=== PATIENT | female | born 1995 | race African-American/Black ===

== ENCOUNTER → 2016-12-13 | Outpatient (CLI) | payer OTHER ==
[~2016-12-13] MED LIST: METR0.757 PV
== END | disposition home or self-care (01) ==
LOC: C.PAPS 08:02
PROVIDERS: ATTEND Physician Assistant
DX: Z01.419 Encounter for gynecological examination (general) (routine) without abnormal findings (principal)

== ENCOUNTER → 2016-12-13 | Outpatient (CLI) | payer OTHER ==
[2016-12-16 01:09] LABS: CHLAMYDIA TRACH RNA*** DETECTED (NOT DETECTED); GC (NEIS GONORRHOEAE)RNA** NOT DETECTED (NOT DETECTED)
== END | disposition home or self-care (01) ==
LOC: C.LAB1850 15:32
PROVIDERS: ATTEND Physician Assistant
DX: Z11.3 Encounter for screening for infections with a predominantly sexual mode of transmission (principal); N89.8 Other specified noninflammatory disorders of vagina

== ENCOUNTER 2017-01-23 15:19 | Emergency (ER) | payer OTHER ==
[~2017-01-23] VITALS: Ht 160 cm; Wt 66.5 kg
[2017-01-23 15:23] VITALS: TEMP 37; Ht 160 cm; Wt 66.5 kg
[2017-01-23] MEDS ORDERED: SODIUM CHLORIDE 0.9% 1000ML 1,000 ML IV STA (15:41)
--- NOTE | 2017-01-23 16:04 | EMERGENCY ROOM VISIT NOTE ---
History First contact with patient: 15:26 Chief Complaint: DIZZY Stated Complaint: FATIGUE, LIGHTHEADED History of Present Illness The patient is a 21 year old female who presents to the Emergency Room with complaints of persistent fatigue and shortness of breath over the last few years , which has become worse within the past few weeks. Since the time of onset, patient states that she has been having increased difficulty exerting herself, as she feels too fatigued and short of breath with any activity. As these symptoms have gotten worse within the last few weeks, she now feels too tired when she sits up to read or do school work. Her symptoms improve when laying down to rest. When the patient feels fatigued and short of breath, she states that she intermittently becomes dizzy and and light headed. These symptoms also seem to be related to activity, and resolve with rest. The patient denies having any chest pain or numbness/tingling during these episodes. She states that she does occasionally have a headache but she denies fevers or chills. Patient notes that she has recently been gaining weight. She has been eating regularly and moving her bowels/urinating regularly. She denies abdominal pain, nausea, vomiting or diarrhea. Patient also notes an itchy, red rash at the base of her right anterior neck. [place] 3 weeks prior, but she does not remember being bitten by any insects or ticks. No rash anywhere else about her body. The patient has a history of malaria and anemia n 2008. She did have a negative malaria test after treatment, but she never had a follow up regarding anemia. She is no longer taking iron supplements. Patient's LMP was 3 weeks prior, no significant or abnormal bleeding at that time, denies chance of . Review of Systems A complete 10 point review of systems was reviewed with the patient with pertinent positives and negatives as per history of present illness. All else were negative. Social History Smoking Status: Never Smoker Smokeless Tobacco Use: No Alcohol Use: occasionally Drug Use: none Marital Status: single Housing Status: lives with family Occupation Status: [employer] student Current/Historical Medications Scheduled Metronidazole Vaginal (Metronidazole Vaginal), 1 APPL PV HS Allergies Coded Allergies: No Known Allergies (Unverified , 01/23/17) Physical Exam Vital Signs Date Time Temp Pulse Resp B/P (MAP) Pulse Ox O2 Delivery O2 Flow Rate FiO2 01/23/17 19:50 84 20 115/45 99 Room Air 01/23/17 17:45 81 109/57 101 111/76 92 122/66 01/23/17 17:12 75 01/23/17 15:23 37.0 77 16 103/65 100 Room Air Physical Exam VITALS: Vitals are noted on the nurse's note and reviewed by myself. Vital signs stable. GENERAL: 21-year-old female, in no acute distress, nondiaphoretic, well- developed well-nourished. SKIN: There is a small, quarter-sized rash on patient's superior right chest. The rash is slightly erythematous, circular in shape, with a central clearing. The skin was without erythema, edema, or bruising. There is no tenting of the skin. Capillary reflex less than 2 seconds. HEAD: Normocephalic atraumatic. EARS: External auditory canals clear, tympanic membranes pearly velazquez without erythema or effusion bilaterally. EYES: Pupils equal round and reactive to light and accommodation. Conjunctivae without injection, sclerae without icterus. Extraocular movements intact. NOSE: Patent, turbinates without inflammation or discharge. No sinus tenderness. MOUTH: Mucous membranes moist. Tonsils are not enlarged. Pharynx without erythema or exudate. Uvula midline. Airway patent. Tongue does not deviate. NECK: Supple without nuchal rigidity. No lymphadenopathy. No thyromegaly. Cervical spine is nontender. No JVD. HEART: Regular rate and rhythm without murmurs gallops or rubs. LUNGS: Clear to auscultation bilaterally without wheezes, rales or rhonchi. No dullness to percussion. No retractions or accessory muscle use. ABDOMEN: Positive bowel sounds x 4. Normal tympanic percussion. Soft, nontender, without masses or organomegaly. Clay sign negative. No guarding or rebound tenderness. MUSCULOSKELETAL: No muscle atrophy, erythema, or edema noted. Full range of motion without joint tenderness in all extremities. No tenderness to palpation. Normal gait. Strength 5/5 throughout. NEURO: Patient was alert and oriented to person place and time. Normal sensation to light and sharp touch. Deep tendon reflexes 2+ throughout. No focal neurological deficits. Medical Decision & Procedures ER Provider Diagnostic Interpretation: EKG: EKG shows NSR with normal intervals, normal QRS complexes, no ST elevation or depression, and no arrhythmias. CXR, reviewed by myself, interpreted by radiologist: FINDINGS: The cardiac and mediastinal contours are normal. There is no evidence of focal pulmonary consolidation. There is no evidence of failure. No pleural effusions are visualized.[ IMPRESSION: No active disease in the chest. Labs: CBC showed extremely minimally low red blood cell count of 4.12. Hemoglobin and hematocrit were normal. There is no anemia, thrombocytopenia, leukocytosis noted on CBC. CMP was negative for electrolyte imbalance, abnormal glucose level, liver or kidney dysfunction. Serum ferritin was normal at 26.2. TIBC normal at 378. INR 1.0. No abnormalities related to coagulation. Lyme disease testing was negative. Monospot testing was negative. Laboratory Results 01/23/17 16:55 Red Blood Count 4.12, Mean Corpuscular Volume 90.8, Mean Corpuscular Hemoglobin 30.3, Mean Corpuscular Hemoglobin Concent 33.4, Mean Platelet Volume 10.6, Neutrophils (%) (Auto) 43.7, Lymphocytes (%) (Auto) 43.9, Monocytes (%) (Auto) 9.4, Eosinophils (%) (Auto) 2.3, Basophils (%) (Auto) 0.6, Neutrophils # (Auto) 3.06, Lymphocytes # (Auto) 3.07, Monocytes # (Auto) 0.66, Eosinophils # (Auto) 0.16, Basophils # (Auto) 0.04 01/23/17 16:55 Test 01/23/17 15:41 01/23/17 16:30 01/23/17 16:55 Urine Test NEG (NEG) Urine Color YELLOW Urine Appearance CLEAR (CLEAR) Urine pH 8.0 (4.5-7.5) Urine Specific [place] 1.022 (1.000-1.030) Urine Protein NEG (NEG) Urine Glucose (UA) NEG (NEG) Urine Ketones NEG (NEG) Urine Occult Blood NEG (NEG) Urine Nitrite NEG (NEG) Urine Bilirubin NEG (NEG) Urine Urobilinogen NEG (NEG) Urine Leukocyte Esterase MODERATE (NEG) Urine WBC (Auto) 5-10 /hpf (0-5) Urine RBC (Auto) 5-10 /hpf (0-4) Urine Hyaline Casts (Auto) 1-5 /lpf (0-5) Urine Epithelial Cells (Auto) >30 /lpf (0-5) Urine Bacteria (Auto) 1+ (NEG) White Blood Count 7.00 K/uL (4.8-10.8) Red Blood Count 4.12 M/uL (4.2-5.4) Hemoglobin 12.5 g/dL (12.0-16.0) Hematocrit 37.4 % (37-47) Mean Corpuscular Volume 90.8 fL (80-100) Mean Corpuscular Hemoglobin 30.3 pg (25-34) Mean Corpuscular Hemoglobin Concent 33.4 g/dl (32-36) Platelet Count 226 K/uL (130-400) Mean Platelet Volume 10.6 fL (7.4-10.4) Neutrophils (%) (Auto) 43.7 % Lymphocytes (%) (Auto) 43.9 % Monocytes (%) (Auto) 9.4 % Eosinophils (%) (Auto) 2.3 % Basophils (%) (Auto) 0.6 % Neutrophils # (Auto) 3.06 K/uL (1.4-6.5) Lymphocytes # (Auto) 3.07 K/uL (1.2-3.4) Monocytes # (Auto) 0.66 K/uL (0.11-0.59) Eosinophils # (Auto) 0.16 K/uL (0-0.5) Basophils # (Auto) 0.04 K/uL (0-0.2) RDW Standard Deviation 42.1 fL (36.4-46.3) RDW Coefficient of Variation 12.7 % (11.5-14.5) Immature Granulocyte % (Auto) 0.1 % Immature Granulocyte # (Auto) 0.01 K/uL (0.00-0.02) Prothrombin Time 10.8 SECONDS (9.0-12.0) Prothromb Time International Ratio 1.0 (0.9-1.1) Activated Partial Thromboplast Time 28.7 SECONDS (21.0-31.0) Partial Thromboplastin Ratio 1.1 Anion Gap 8.0 mmol/L (3-11) Est Creatinine Clear Calc Drug Dose 95.9 ml/min Estimated GFR () 113.5 Estimated GFR (Non- 97.9 BUN/Creatinine Ratio 11.3 (10-20) Calcium Level 9.0 mg/dl (8.5-10.1) Total Iron Binding Capacity 378 mcg/dl (250-450) Ferritin 26.2 ng/ml (8.0-388.0) Total Bilirubin 0.4 mg/dl (0.2-1) Direct Bilirubin 0.1 mg/dl (0-0.2) Aspartate Amino Transf (AST/SGOT) 19 U/L (15-37) Alanine Aminotransferase (ALT/SGPT) 21 U/L (12-78) Alkaline Phosphatase 44 U/L (45-117) Total Protein 7.6 gm/dl (6.4-8.2) Albumin 4.0 gm/dl (3.4-5.0) Thyroid Stimulating Hormone (TSH) 0.413 uIu/ml (0.300-4.500) Lyme Disease IgG Antibody NEG (NEG) Lyme Disease IgM Antibody NEG (NEG) Monoscreen NEG (NEG) Laboratory results reviewed by me Medications Administered Medications (Trade) Dose Ordered Sig/Babar Route Start Time Stop Time Status Last Admin Dose Admin Sodium Chloride 1,000 ml @ 999 mls/hr Q1H1M STAT IV 01/23/17 15:41 01/23/17 16:41 DC 01/23/17 17:27 999 MLS/HR ED Course The patient was seen and evaluated as above. Labs, EKG, urinalysis with urine test, and chest x-ray ordered due to patient's symptoms and history. Due to patient's dizziness and occasional lightheadedness, the patient was given a 1 L bolus normal saline solution via IV. The patient states at this time she is comfortable. I reviewed all results at this time and discussed the case with Dr. Renteria who recommended monospot test in addition to the rest of the workup. This test was ordered. I discussed negative work-up with the patient at this time. I did discuss with her the importance of follow-up outpatient with [facility] or her PCP this week for further evaluation and management of her symptoms. The patient was discharged home in good condition. Medical Decision Labs, x-rays, EKG were ordered due to patient's symptoms. I did review all of these findings, and did not find a specific source for her symptoms at this time. I did consider several diagnoses including: Lyme disease, mononucleosis, viral infection, hypothyroidism, hyperthyroidism, asthma, anemia, vitamin deficiency, viral exanthem, insect bite, infectious process, cardiac dysrhythmia , vertigo, orthostatic hypotension, hypotension, dehydration, malignancy, urinary tract infection, and others. I feel that any of these differential diagnoses have been ruled out with the patient's workup today. I did recommend that she follow up with her primary care provider for further evaluation and workup to determine the cause of her symptoms. Impression Primary Impression: Dizziness Additional Impressions: Rash and nonspecific skin eruption Fatigue Departure Information Dispostion Home / Self-Care Condition GOOD Referrals No Doctor, Assigned (PCP) Patient Instructions ED Dizziness O, My [facility] Additional Instructions You were seen and evaluated in the emergency department for her symptoms of fatigue, rash, dyspnea on exertion. We completed a workup including lab work, EKG, chest x-ray, and urine testing, all of which were negative for acute process. You were not anemic based on her laboratory findings, however it may be worth having further or more extensive lab work completed to rule out vitamin deficiencies. Please follow up with S or a primary care physician in 2-3 days for further evaluation and management of her symptoms. Return to the emergency department if he experiences worsening symptoms including dizziness, lightheadedness, nausea, vomiting, fatigue, difficulty breathing, chest pain, fever, chills, other associated symptoms. Problem Qualifiers Additional Impressions: Fatigue Fatigue type: unspecified Qualified Codes: R53.83 - Other fatigue
[2017-01-23] MEDS ORDERED: METR0.757 PV (16:17)
[2017-01-23 17:13] LABS: BASO % 0.6 %; BASO ABS # 0.04 K/uL (0-0.2); COMPLETE YES; EOS % 2.3 %; HEMATOCRIT 37.4 % (37-47); IG% 0.1 %; LYMPH % 43.9 %; LYMPH ABS # 3.07 K/uL (1.2-3.4); MEAN CELL VOLUME 90.8 fL (80-100); MEAN CORPUSCULAR HEMOGLOBIN 30.3 pg (25-34); MEAN CORPUSCULAR HGB CONC 33.4 g/dl (32-36); MEAN PLATELET VOLUME 10.6 fL (7.4-10.4); MONO % 9.4 %; NEUT % 43.7 %; PLATELET COUNT 226 K/uL (130-400); RED BLOOD COUNT 4.12 M/uL (4.2-5.4)
[2017-01-23 17:21] LABS: PARTIAL THROMBOPLASTIN RATIO 1.1; PROTHROMBIN TIME (PATIENT) 10.8 SECONDS (9.0-12.0)
[2017-01-23 17:29] LABS: BUN/CREATININE RATIO 11.3 (10-20); CREATININE 0.85 mg/dl (0.60-1.20)
[2017-01-23 17:40] LABS: FERRITIN 26.2 ng/ml (8.0-388.0); THYROID STIMULATING HORMONE 0.413 uIu/ml (0.300-4.500)
[2017-01-23 18:00] LABS: URINE APPEARANCE CLEAR (CLEAR); URINE BILIRUBIN NEG (NEG); URINE COLOR YELLOW; URINE EPITHELIAL CELL AUTO >30 /lpf (0-5); URINE NITRITE NEG (NEG); URINE SPECIFIC GRAVITY 1.022 (1.000-1.030); UROBILINOGEN NEG (NEG); ZZUR CULT IF INDIC CLEAN CATCH YES
[2017-01-23 18:01] LABS: MANUAL MICROSCOPIC REQUIRED? NO; REVIEW REQ? NO
[2017-01-23 18:05] LABS: LYME DISEASE AB IGG NEG (NEG); LYME DISEASE AB IGM NEG (NEG)
--- NOTE | 2017-01-23 18:05 | DIAGNOSTIC IMAGING REPORT ---
CHEST 2 VIEWS ROUTINE CLINICAL HISTORY: Dyspnea FATIGUE COMPARISON STUDY: No previous studies for comparison. FINDINGS: The cardiac and mediastinal contours are normal. There is no evidence of focal pulmonary consolidation. There is no evidence of failure. No pleural effusions are visualized.[ IMPRESSION: No active disease in the chest. Electronically signed by: Doroteo Logan M.D. 01/23/2017 6:04 PM Dictated Date/Time: 01/23/2017 6:03 PM
[2017-01-23 19:50] VITALS: BP 115/45; PULSE 84; O2SAT 99
== END 2017-01-23 20:00 | disposition home or self-care (01) ==
LOC: C.EDB 15:21 → C.EDC 20:00
DX: R42 Dizziness and giddiness (principal); R21 Rash and other nonspecific skin eruption; R53.83 Other fatigue; Z86.13 Personal history of malaria

== ENCOUNTER 2017-08-27 13:44 | Emergency (ER) | payer OTHER ==
[~2017-08-27] VITALS: Ht 160 cm; Wt 67.0 kg
[2017-08-27 13:49] VITALS: TEMP 36.8; Ht 160 cm; Wt 67.0 kg
--- NOTE | 2017-08-27 14:56 | DIAGNOSTIC IMAGING REPORT ---
CHEST 2 VIEWS ROUTINE CLINICAL HISTORY: cougheval for pna cough. Dyspnea. COMPARISON STUDY: 01/23/2017 FINDINGS: The bones soft tissues and hemidiaphragms are normal. The cardiomediastinal silhouette is normal. The lungs are clear. The pulmonary vasculature is normal. IMPRESSION: Negative chest. The above report was generated using voice recognition software. It may contain grammatical, syntax or spelling errors. Electronically signed by: Husam Hamilton M.D. 08/27/2017 2:54 PM Dictated Date/Time: 08/27/2017 2:54 PM
[2017-08-27 15:01] LABS: INFLUENZA B ANTIGEN Neg for Influ B (NEG)
[2017-08-27 15:32] VITALS: BP 121/58; PULSE 83; O2SAT 100
--- NOTE | 2017-08-27 18:49 | EMERGENCY ROOM VISIT NOTE ---
History Report prepared by Eulalio: Byron Traylor Under the Supervision of: Dr. Devyn Cadet M.D. First contact with patient: 13:52 Chief Complaint: FLU LIKE SX Stated Complaint: CONGESTION, HEADACHE, SORE THROAT History of Present Illness The patient is a 22 year old female who presents to the Emergency Room with complaints of persistent generalized illness beginning four days ago. Her symptoms include headache, sinus congestion, left ear pain, body aches, non- productive cough, and sore throat. The patient states that she feels a little short of breath as well. She states that she has felt some pain in her mid chest. Her sore throat resolved with over the counter medication. The patient denies vomiting or leg swelling. She denies chance of . She had a flu- shot this year. The patient is not sexually active. She is not on control. Source of History: patient Onset: Four days ago Position: other (generalized) Quality: other (illness) Timing: other (persistent) Associated Symptoms: + headache, + sorethroat, + cough (non-productive), No vomiting Note: The patient denies leg swelling. She also complains of left ear pain, body aches and sinus congestion. Review of Systems See HPI for pertinent positives & negatives. A total of 10 systems reviewed and were otherwise negative. Past Medical & Surgical Medical Problems: (1) Lower abdominal pain (2) No Known Active Medical Problems Family History No pertinent family history stated. Social History Smoking Status: Never Smoker Alcohol Use: occasionally Drug Use: none Marital Status: single Housing Status: lives with family Occupation Status: [employer] student Current/Historical Medications No Active Prescriptions or Reported Meds Allergies Coded Allergies: No Known Allergies (Unverified , 08/27/17) Physical Exam Vital Signs Date Time Temp Pulse Resp B/P (MAP) Pulse Ox O2 Delivery O2 Flow Rate FiO2 08/27/17 15:32 83 20 121/58 100 Room Air 08/27/17 13:49 36.8 82 20 126/73 97 Room Air Physical Exam Constitutional: Vital signs reviewed. Eyes: Pupils are equal round reactive to light. Conjunctiva are noninjected. ENT: Pharynx is clear without erythema or exudate. Mucous membranes are moist. Left TM is not erythematous. Slight amount of clear effusion. Neck supple without meningeal signs. No lymphadenopathy. Respiratory: Clear to auscultation bilaterally. Breath sounds are equal bilaterally. Cardiovascular: Regular rate and rhythm. No rubs or gallops. GI: Soft, nondistended and nontender. Bowel sounds are present. Musculoskeletal: Tenderness to the sternum on palpation. No peripheral edema. No lower extremity tenderness. Integumentary: No cyanosis. Neurological: The patient is awake and alert. No focal deficits. Psychiatric: Normal affect. Medical Decision & Procedures ER Provider Diagnostic Interpretation: Radiology results as stated below per my review and the radiologist's interpretation: CHEST 2 VIEWS ROUTINE FINDINGS: The bones soft tissues and hemidiaphragms are normal. The cardiomediastinal silhouette is normal. The lungs are clear. The pulmonary vasculature is normal. IMPRESSION: Negative chest. The above report was generated using voice recognition software. It may contain grammatical, syntax or spelling errors. Electronically signed by: Husam Hamilton M.D. 08/27/2017 2:54 PM Laboratory Results Test 08/27/17 14:20 Influenza Type A Antigen Neg for Influ A (NEG) Influenza Type B Antigen Neg for Influ B (NEG) Laboratory results as reviewed by me. ECG Indication: chest pain Rate (beats per minute): 84 Rhythm: normal sinus Findings: no acute ischemic change, no ectopy, other (No signs of pericarditis) ED Course 1356: The patient was evaluated in room B2. A complete history and physical exam was performed. 1532: Upon reevaluation, the patient appeared to have improvement of her symptoms. I discussed tonight's findings with her. She verbalized agreement of the treatment plan. I recommended follow-up with [facility]. The patient was discharged home. Medical Decision This is a 22-year-old female who presents with flulike symptoms. Differential diagnosis includes influenza, viral syndrome, bronchitis, pneumonia, costochondritis. I did perform a limited focused review of portions of the patient's old chart on the electronic medical record. The patient has had no recent pertinent visits to this hospital. I did evaluate the patient as noted above. I did order and personally review the patient's 12-lead EKG and chest x-ray as described above. Her twelve-lead EKG does not show any signs of pericarditis. Chest x-ray does not show any signs of pneumonia. I did order a rapid flu test which was negative. I did discuss the test results with the patient. I did recommend follow-up with [facility] later this week. She was discharged in good condition. Medication Reconcilliation Current Medication List: was personally reviewed by me Blood Pressure Screening Patient's blood pressure: Elevated blood pressure Blood pressure disposition: Referred to PCP Impression Primary Impression: Influenza-like symptoms Scribe Attestation The scribe's documentation has been prepared under my direct and personally reviewed by me in its entirety. I confirm that the note above accurately reflects all work, treatment, procedures, and medical decision making performed by me. Departure Information Dispostion Home / Self-Care Prescriptions No Active Prescriptions or Reported Meds Referrals No Doctor, Assigned (PCP) Forms HOME CARE DOCUMENTATION FORM, IMPORTANT VISIT INFORMATION Patient Instructions My [facility] [address] Additional Instructions You have been examined and treated today on an emergency basis only. This is not a substitute for, or an effort to provide, complete comprehensive medical care. It is impossible to recognize and treat all injuries or illnesses in a single emergency department visit. It is therefore important that you follow up closely with [facility] at the end of the week. Call as soon as possible for an appointment. Return for worsening symptoms or if you develop trouble breathing, vomiting, or any other concerning symptoms.
== END 2017-08-27 15:46 | disposition home or self-care (01) ==
LOC: C.EDB 13:46
DX: R51 Headache (principal); R09.81 Nasal congestion; H92.02 Otalgia, left ear; M79.1 Myalgia; R05 Cough; J02.9 Acute pharyngitis, unspecified

== ENCOUNTER 2017-09-01 19:53 | Emergency (ER) | payer OTHER ==
[~2017-09-01] VITALS: Ht 160 cm; Wt 66.1 kg
[2017-09-01 19:57] VITALS: TEMP 36.4; Ht 160 cm; Wt 66.1 kg
[2017-09-01] MEDS ORDERED: DEXT1LIQ58 PO (20:32)
[2017-09-01 21:04] LABS: BASO % 0.5 %; BASO ABS # 0.04 K/uL (0-0.2); EOS % 2.2 %; EOS ABS # 0.16 K/uL (0-0.5); HEMOGLOBIN 13.2 g/dL (12.0-16.0); IG# 0.02 K/uL (0.00-0.02); LYMPH % 36.7 %; LYMPH ABS # 2.72 K/uL (1.2-3.4); MEAN CELL VOLUME 91.7 fL (80-100); MEAN CORPUSCULAR HEMOGLOBIN 30.3 pg (25-34); MEAN PLATELET VOLUME 10.8 fL (7.4-10.4); MONO % 9.9 %; MONO ABS # 0.73 K/uL (0.11-0.59); NEUT % 50.4 %; NEUT ABS # 3.74 K/uL (1.4-6.5); PLATELET COUNT 290 K/uL (130-400); RED CELL DISTRIBUTION WIDTH SD 43.9 fL (36.4-46.3); WHITE BLOOD COUNT 7.41 K/uL (4.8-10.8)
[2017-09-01 21:24] LABS: ALBUMIN 4.2 gm/dl (3.4-5.0); CALCIUM 9.1 mg/dl (8.5-10.1); CREATININE 0.81 mg/dl (0.60-1.20); POTASSIUM 4.2 mmol/L (3.5-5.1)
[2017-09-01 21:27] LABS: TOTAL PROTEIN 8.3 gm/dl (6.4-8.2)
--- NOTE | 2017-09-01 22:01 | EMERGENCY ROOM VISIT NOTE ---
History Report prepared by Eulalio: Charlee Cole Under the Supervision of: Dr. Elliott Martin D.O. First contact with patient: 20:30 Chief Complaint: ED VAG BLEEDING Stated Complaint: PERIOD SYMTOMS, TWICE IN A MONTH History of Present Illness The patient is a 22 year old female who presents to the Emergency Room with complaints of persistent vaginal bleeding starting yesterday. The bleeding is similar to her period. She is concerned because she already had her period this month. She called the advice nurse who recommended she go to urgent care. She called the urgent care who suggested she go to the ED in case she requires an ultrasound. She had her period 2.5 weeks ago. She started bleeding again yesterday. She denies having any abdominal pain or leg swelling. The patient has not been sexually active since she was treated for chlamydia last summer. She is a student. She does drink occasionally. She is not on control. She has not had any previous abdominal surgeries. Source of History: patient Onset: yesterday Position: other (vaginal) Quality: other (bleeding) Timing: other (persistent) Associated Symptoms: No abdominal pain Review of Systems See HPI for pertinent positives & negatives. A total of 10 systems reviewed and were otherwise negative. Past Medical & Surgical Medical Problems: (1) Lower abdominal pain (2) No Known Active Medical Problems Family History Heart disease Hypertension Social History Smoking Status: Never Smoker Alcohol Use: occasionally Drug Use: none Marital Status: single Occupation Status: [employer] student Current/Historical Medications Scheduled Dextromethorphan-Phenylephrine (Vicks Dayquil Cold & Flu), 1 DOSE PO PRN UD Allergies Coded Allergies: No Known Allergies (Unverified , 08/27/17) Physical Exam Vital Signs Date Time Temp Pulse Resp B/P (MAP) Pulse Ox O2 Delivery O2 Flow Rate FiO2 09/01/17 23:57 84 18 133/82 98 Room Air 09/01/17 21:57 68 18 125/74 100 Room Air 09/01/17 19:57 36.4 69 16 110/74 98 Room Air Physical Exam GENERAL: Patient is awake, alert, and in no acute distress. Patient is resting comfortably and showing no signs of anxiety EYES: The conjunctivae are clear. The pupils are round and reactive. EARS, NOSE, MOUTH AND THROAT: The nose is without any evidence of any deformity. Mucous membranes are moist tongue is midline NECK: The neck is nontender and supple. RESPIRATORY: Normal respiratory effort is noted there is no evidence of wheezing rhonchi or rales CARDIOVASCULAR: Regular rate and rhythm noted there no murmurs rubs or gallops normal S1 normal S2 GASTROINTESTINAL: The abdomen is soft. Bowel sounds are present in all quadrants. Abdomen is nontender BACK: No midline tenderness or or step-off noted range of motion in flexion extension as well as rotation no signs of muscle spasm noted MUSCULOSKELETAL/EXTREMITIES: There is no evidence of gross deformity full range of motion is noted in the hips and shoulders SKIN: There is no obvious evidence of any rash. There are no petechiae, pallor or cyanosis noted. NEUROLOGIC: Patient is awake alert and oriented x3 Medical Decision & Procedures ER Provider Diagnostic Interpretation: Radiology results as stated below per my review and [facility] radiologist interpretation: US Pelvis: Comparison: 11/14/2015 Uterus and in the major unremarkable. Right ovarian cyst measuring up to 5.7 cm. Otherwise ovaries are unremarkable. No torsion or masses. Consider short neural follow-up within 6-10 weeks to document resolution. No free fluid within the pelvis. Laboratory Results 09/01/17 20:50 Red Blood Count 4.36, Mean Corpuscular Volume 91.7, Mean Corpuscular Hemoglobin 30.3, Mean Corpuscular Hemoglobin Concent 33.0, Mean Platelet Volume 10.8, Neutrophils (%) (Auto) 50.4, Lymphocytes (%) (Auto) 36.7, Monocytes (%) (Auto) 9.9, Eosinophils (%) (Auto) 2.2, Basophils (%) (Auto) 0.5, Neutrophils # (Auto) 3.74, Lymphocytes # (Auto) 2.72, Monocytes # (Auto) 0.73, Eosinophils # (Auto) 0.16, Basophils # (Auto) 0.04 09/01/17 20:50 Test 09/01/17 00:00 09/01/17 20:50 Urine Test NEG (NEG) White Blood Count 7.41 K/uL (4.8-10.8) Red Blood Count 4.36 M/uL (4.2-5.4) Hemoglobin 13.2 g/dL (12.0-16.0) Hematocrit 40.0 % (37-47) Mean Corpuscular Volume 91.7 fL (80-100) Mean Corpuscular Hemoglobin 30.3 pg (25-34) Mean Corpuscular Hemoglobin Concent 33.0 g/dl (32-36) Platelet Count 290 K/uL (130-400) Mean Platelet Volume 10.8 fL (7.4-10.4) Neutrophils (%) (Auto) 50.4 % Lymphocytes (%) (Auto) 36.7 % Monocytes (%) (Auto) 9.9 % Eosinophils (%) (Auto) 2.2 % Basophils (%) (Auto) 0.5 % Neutrophils # (Auto) 3.74 K/uL (1.4-6.5) Lymphocytes # (Auto) 2.72 K/uL (1.2-3.4) Monocytes # (Auto) 0.73 K/uL (0.11-0.59) Eosinophils # (Auto) 0.16 K/uL (0-0.5) Basophils # (Auto) 0.04 K/uL (0-0.2) RDW Standard Deviation 43.9 fL (36.4-46.3) RDW Coefficient of Variation 13.0 % (11.5-14.5) Immature Granulocyte % (Auto) 0.3 % Immature Granulocyte # (Auto) 0.02 K/uL (0.00-0.02) Anion Gap 7.0 mmol/L (3-11) Est Creatinine Clear Calc Drug Dose 99.5 ml/min Estimated GFR () 119.5 Estimated GFR (Non- 103.1 BUN/Creatinine Ratio 16.5 (10-20) Calcium Level 9.1 mg/dl (8.5-10.1) Total Bilirubin 0.4 mg/dl (0.2-1) Aspartate Amino Transf (AST/SGOT) 14 U/L (15-37) Alanine Aminotransferase (ALT/SGPT) 21 U/L (12-78) Alkaline Phosphatase 46 U/L (45-117) Total Protein 8.3 gm/dl (6.4-8.2) Albumin 4.2 gm/dl (3.4-5.0) Globulin 4.1 gm/dl (2.5-4.0) Albumin/Globulin Ratio 1.0 (0.9-2) Laboratory results per my review. ED Course 2034: The patient was evaluated in room A3. A complete history and physical examination were performed. 2145: I reevaluated the patient. She would like to go for ultrasound. 0004: Upon reevaluation, the patient is resting comfortably. I discussed the results and treatment plan with her. She verbalized agreement of the treatment plan. She was discharged home. Medical Decision Prior records/ancillary studies reviewed. Triage Nursing notes reviewed. The patient's history was concerning for vaginal bleeding. Differential diagnosis: Etiologies such as ectopic , dysfunction uterine bleeding, bleeding dyscrasia, trauma, infection, as well as others were entertained. The patient is a 22-year-old female who presented to the emergency department for vaginal bleeding. The patient had a normal. At the usual timing but 2 weeks later started having vaginal bleeding again. The patient did not have a physical exam consistent with an acute surgical abdomen. I discussed the patient's laboratory and radiographic studies with her. She was found to have an ovarian cyst which I think could be causing this bleeding midcycle. She was encouraged to follow-up with [facility] [facility] as soon as possible. She was also encouraged to continue using Motrin and Tylenol for pain and return to the emergency department immediately if symptoms change worsen or the need arises. Medication Reconcilliation Current Medication List: was personally reviewed by me Blood Pressure Screening Patient's blood pressure: Normal blood pressure Blood pressure disposition: Did not require urgent referral Impression Primary Impression: Vaginal bleeding Additional Impressions: Menometrorrhagia Ovarian cyst Scribe Attestation The scribe's documentation has been prepared under my direction and personally reviewed by me in its entirety. I confirm that the note above accurately reflects all work, treatment, procedures, and medical decision making performed by me. Departure Information Dispostion Home / Self-Care Referrals [facility] (PCP) Forms WORK / SCHOOL INSTRUCTIONS, HOME CARE DOCUMENTATION FORM, IMPORTANT VISIT INFORMATION Patient Instructions Cysts Ovarian, ED Bleed Irregular Vaginal, My [facility] Additional Instructions Call your family doctor to schedule a follow-up appointment. Follow-up with your primary [employer] [facility] physician for follow-up. Return to the emergency department if symptoms worsen or if need arises. Use Motrin and Tylenol as directed for pain. Problem Qualifiers Additional Impressions: Ovarian cyst Laterality: unspecified laterality Qualified Codes: N83.209 - Unspecified ovarian cyst, unspecified side
[2017-09-01 23:57] VITALS: BP 133/82; PULSE 84; O2SAT 98
--- NOTE | 2017-09-02 06:38 | DIAGNOSTIC IMAGING REPORT ---
PELVIC ULTRASOUND CLINICAL HISTORY: patient request, bleeding COMPARISON STUDY: Pelvic ultrasound November 14, 2015. TECHNIQUE: Transabdominal sonography of the pelvis was performed. The patient deferred transvaginal imaging. FINDINGS: The uterus measures 7.2 x 3.5 x 4.8 cm. Endometrium is within normal limits, measuring 1 mm in thickness. The left ovary is sonographically normal, measuring 2.5 x 1.3 x 1.9 cm. The right ovary measures 5.5 x 3.6 x 6.4 cm and contains a simple appearing 5.7 cm cyst. This is no mural nodularity. There was color flow within each ovary. IMPRESSION: 1. 5.7 cm simple appearing right ovarian cyst. This is likely benign. A follow-up pelvic ultrasound in 6 weeks to ensure resolution is recommended. 2. Otherwise, unremarkable transabdominal pelvic ultrasound. Electronically signed by: Rian Magaña M.D. 09/02/2017 6:36 AM Dictated Date/Time: 09/02/2017 6:34 AM
== END 2017-09-02 00:14 | disposition home or self-care (01) ==
LOC: C.EDB 19:54 → C.EDA 09-02 00:14
DX: N93.9 Abnormal uterine and vaginal bleeding, unspecified (principal); N83.209 Unspecified ovarian cyst, unspecified side; N92.1 Excessive and frequent menstruation with irregular cycle; Z82.49 Family history of ischemic heart disease and other diseases of the circulatory system

== ENCOUNTER 2017-10-22 13:53 | Emergency (ER) | payer OTHER ==
[~2017-10-22] VITALS: Ht 160 cm; Wt 64.0 kg
[~2017-10-22 13:53] MED LIST changes: +DEXT1LIQ58 PO; -METR0.757 PV
[2017-10-22 14:03] VITALS: TEMP 36.8; Ht 160 cm; Wt 64.0 kg
[2017-10-22] MEDS ORDERED: AMOX875T PO (17:35)
--- NOTE | 2017-10-22 17:39 | EMERGENCY ROOM VISIT NOTE ---
History Report prepared by Eulalio: Elbert Roberts Under the Supervision of: Dr. David Zarate M.D. First contact with patient: 17:27 Chief Complaint: NAUSEA Stated Complaint: NAUSEA AND EAR PAIN Nursing Triage Summary: having ear pain, nausea, having pain on the left side of my face for the past couple weeks. History of Present Illness The patient is a 22 year old female who presents to the Emergency Room with complaints of constant left ear pain beginning a week ago. She currently rates her discomfort a 10/10 in severity. The patient states her pain spreads to her jaw and teeth, and she is nauseous. She reports she has been taking ibuprofen for pain, but it is not working. The patient denies fever, traveling, being on a plane, swimming, fevers, sorethroat, a cough, chance of , vomiting, and diarrhea. Source of History: patient Onset: a few weeks ago Position: ear (left) Symptom Intensity: 10/10 Timing: constant Associated Symptoms: + nausea, No sorethroat, No cough, No vomiting, No diarrhea Review of Systems See HPI for pertinent positives and negatives. A total of ten systems were reviewed and were otherwise negative. Past Medical & Surgical Medical Problems: (1) Lower abdominal pain (2) No Known Active Medical Problems Family History Heart disease Hypertension Social History Smoking Status: Never Smoker Alcohol Use: occasionally Drug Use: none Marital Status: single Occupation Status: [employer] student Current/Historical Medications Scheduled Amoxicillin & Pot Clavulanate (Augmentin 875-125 mg), 875 MG PO BID Allergies Coded Allergies: No Known Allergies (Unverified , 08/27/17) Physical Exam Vital Signs Date Time Temp Pulse Resp B/P (MAP) Pulse Ox O2 Delivery O2 Flow Rate FiO2 10/22/17 17:54 107 16 123/84 99 Room Air 10/22/17 14:03 36.8 98 18 132/80 98 Room Air Physical Exam Physical Exam GENERAL: She is oriented to person, place, and time. She appears well- developed and well-nourished. She does not appear distressed. ____ HENT: Exam performed. Head: Normocephalic and atraumatic. Right Ear: External ear normal. No mastoid tenderness. TM is velazquez and pearly. Left Ear: External ear normal. No mastoid tenderness. TM is erythematous and bulging. Mouth/Throat: The oropharynx is clear and moist. No trismus in the jaw. No dental abscesses or uvula swelling. No oropharyngeal exudate or tonsillar abscesses. ____ EYES: Conjunctivae and EOM are normal. Pupils are equal, round, and reactive to light. Right eye exhibits no discharge. Left eye exhibits no discharge. No scleral icterus. ____ NECK: Normal range of motion. Neck supple. No JVD present. No spinous process tenderness present. No carotid bruit present. No rigidity. No tracheal deviation and normal range of motion present. No Brudzinski's sign and no Kernig 's sign noted. ____ CV: Normal rate, regular rhythm, normal heart sounds and intact distal pulses. There is no peripheral edema. Palpable radial pulses bue. ____ PULM/CHEST: Effort normal and breath sounds normal. No respiratory distress. No stridor. She has no wheezes. She has no rales. Chest Wall: She exhibits no tenderness. ____ ABD: The abdomen is soft. Bowel sounds are normal. She has no distension. No mass is present. There is no tenderness. There is no rebound, no guarding, no Clay's sign and no tenderness at McBurney's point. Rovsig negative MUSC/SKEL: Normal range of motion. There is no peripheral edema, tenderness or deformity. LYMPH: No cervical adenopathy. ____ NEURO: She is alert and oriented to person, place, and time. She has normal strength. No cranial nerve deficit or sensory deficit. Coordination and gait normal. GCS eye subscore is 4. GCS verbal subscore is 5. GCS motor subscore is 6. Cerebellar tests wnl. ____ SKIN: Skin is warm and dry. She is not diaphoretic. ____ PSYCH: She has a normal mood and affect. Her behavior is normal. Judgment and thought content normal. ____ Medical Decision & Procedures Medications Administered Medications (Trade) Dose Ordered Sig/Babar Route Start Time Stop Time Status Last Admin Dose Admin Amoxicillin/ Clavulanate Potassium (Augmentin Tab) 875 mg NOW ONCE PO 10/22/17 18:00 10/22/17 18:01 DC 10/22/17 17:54 875 MG ED Course 1730: The patient was evaluated in room C01B. A complete history and physical exam was performed. The patient has otitis media. She will be discharge with antibiotics. DISCHARGE - Plan of care discussed with patient and questions answered. The patient was given both verbal and printed discharge instructions. The patient verbalized understanding and ability to comply. The patient is to seek outpatient follow up as noted in the discharge instructions. The patient verbalized understanding and ability to comply. The patient is discharged in stable condition. The patient was instructed to return for worsening symptoms. Medical Decision The patient was evaluated in room C01B. A complete history and physical exam was performed. The patient has otitis media. She will be discharge with antibiotics. DISCHARGE - Plan of care discussed with patient and questions answered. The patient was given both verbal and printed discharge instructions. The patient verbalized understanding and ability to comply. The patient is to seek outpatient follow up as noted in the discharge instructions. The patient verbalized understanding and ability to comply. The patient is discharged in stable condition. The patient was instructed to return for worsening symptoms. Medication Reconcilliation Current Medication List: was personally reviewed by me Blood Pressure Screening Patient's blood pressure: Normal blood pressure Blood pressure disposition: Did not require urgent referral Impression Primary Impression: Otitis media Scribe Attestation The scribe's documentation has been prepared under my direction and personally reviewed by me in its entirety. I confirm that the note above accurately reflects all work, treatment, procedures, and medical decision making performed by me. The chart was completed utilizing [employer] Speech voice recognition software. Grammatical errors, random word insertions, pronoun errors, and incomplete sentences are an occasional consequence of this system due to software limitations, ambient noise, and hardware issues. Any formal questions or concerns about the content, text, or information contained within the body of this dictation should be directly addressed to the physician for clarification. Departure Information Dispostion Home / Self-Care Prescriptions Amoxicillin & Pot Clavulanate (Augmentin 875-125 mg) 1 Tab Tab 875 MG PO BID for 7 Days, #14 TAB Prov: David Zarate M.D. 10/22/17 Referrals [facility] (PCP) Forms HOME CARE DOCUMENTATION FORM, IMPORTANT VISIT INFORMATION Patient Instructions ED Otitis Media Serous Adult, [facility] Problem Qualifiers Primary Impression: Otitis media Otitis media type: suppurative Chronicity: acute Laterality: left Recurrence: not specified as recurrent Spontaneous tympanic membrane rupture: without spontaneous rupture Qualified Codes: H66.002 - Acute suppurative otitis media without spontaneous rupture of ear drum, left ear
[2017-10-22 17:54] VITALS: BP 123/84; PULSE 107; O2SAT 99
[2017-10-22] MEDS ORDERED: AMOXICILLIN/CLAVULANATE TAB 875 MG TAB PO ONE (18:00)
== END 2017-10-22 17:59 | disposition home or self-care (01) ==
LOC: C.EDB 13:55 → C.EDC 17:59
DX: H66.002 Acute suppurative otitis media without spontaneous rupture of ear drum, left ear (principal); Z82.49 Family history of ischemic heart disease and other diseases of the circulatory system

== ENCOUNTER 2017-10-24 22:27 | Emergency (ER) | payer OTHER ==
[~2017-10-24] VITALS: Ht 160 cm; Wt 65.7 kg
[~2017-10-24 22:27] MED LIST changes: +AMOX875T PO; -DEXT1LIQ58 PO
[2017-10-24 22:39] VITALS: TEMP 37.1; Ht 160 cm; Wt 65.7 kg
[2017-10-24] MEDS ORDERED: KETOROLAC TROMETHAMINE 30 MG/ML VIAL IV STA (22:48)
[2017-10-24] MEDS ORDERED: OPTIRAY 320 IV PRN (23:00)
[2017-10-25] MEDS ORDERED: KETOROLAC TROMETHAMINE 60 MG/2 ML VIAL ONE (00:03)
[2017-10-25 00:23] LABS: BASO % 0.4 %; BASO ABS # 0.03 K/uL (0-0.2); EOS % 2.8 %; EOS ABS # 0.24 K/uL (0-0.5); HEMATOCRIT 37.2 % (37-47); HEMOGLOBIN 12.4 g/dL (12.0-16.0); IG# 0.03 K/uL (0.00-0.02); LYMPH % 37.7 %; LYMPH ABS # 3.19 K/uL (1.2-3.4); MEAN CELL VOLUME 89.6 fL (80-100); MEAN CORPUSCULAR HEMOGLOBIN 29.9 pg (25-34); MEAN CORPUSCULAR HGB CONC 33.3 g/dl (32-36); MEAN PLATELET VOLUME 10.5 fL (7.4-10.4); MONO % 7.6 %; MONO ABS # 0.64 K/uL (0.11-0.59); NEUT % 51.1 %; NEUT ABS # 4.33 K/uL (1.4-6.5); PLATELET COUNT 283 K/uL (130-400); RED CELL DISTRIBUTION WIDTH CV 12.9 % (11.5-14.5); RED CELL DISTRIBUTION WIDTH SD 42.3 fL (36.4-46.3); WHITE BLOOD COUNT 8.46 K/uL (4.8-10.8)
[2017-10-25 00:42] LABS: CALCIUM 8.7 mg/dl (8.5-10.1); CREATININE 0.88 mg/dl (0.60-1.20); POTASSIUM 3.5 mmol/L (3.5-5.1)
[2017-10-25] MEDS ORDERED: DiphenhydrAMINE HCL 50 MG/ML VIAL IV STA (01:26)
[2017-10-25] MEDS ORDERED: METOCLOPRAMIDE HCL INJ 5 MG/ML 2 ML VIAL IV STA (01:26)
[2017-10-25] MEDS ORDERED: OXYCODONE IR HOME PACK PO ONE (02:15)
[2017-10-25 02:17] VITALS: BP 127/81; PULSE 76; O2SAT 98
--- NOTE | 2017-10-25 06:12 | EMERGENCY ROOM VISIT NOTE ---
History First contact with patient: 22:47 Chief Complaint: EAR PAIN Stated Complaint: SEVERE L EAR PAIN History of Present Illness The patient is a 22 year old female who presents to the Emergency Room with complaints of severe right ear pain for the past 2 weeks was seen here the other day and placed on Augmentin. No change in her symptoms. Motrin is not helping. She is taking antibiotics as directed. Pain 10 out of 10. Nothing makes it better or worse. It does not radiate. Patient denies chest pain, dyspnea, fever, chills, cough, congestion, runny nose, neck stiffness, abdominal pain, vomiting, diarrhea, loss of hearing. No swimming. No injury. Review of Systems An 10 system review of systems was completed with positives and pertinent negatives listed in the HPI. Past Medical/Surgical History Medical Problems: (1) Lower abdominal pain (2) No Known Active Medical Problems Family History Heart disease Hypertension Social History Smoking Status: Never Smoker Alcohol Use: occasionally Drug Use: none Marital Status: single Occupation Status: [employer] student Current/Historical Medications Scheduled Amoxicillin & Pot Clavulanate (Augmentin 875-125 mg), 875 MG PO BID Physical Exam Vital Signs Date Time Temp Pulse Resp B/P (MAP) Pulse Ox O2 Delivery O2 Flow Rate FiO2 10/25/17 02:17 76 18 127/81 98 10/25/17 00:30 86 18 137/83 96 Room Air 10/24/17 22:39 37.1 96 18 130/79 91 Room Air Physical Exam VITALS: Vitals are noted on the nurse's note and reviewed by myself. Vital signs stable. GENERAL: Pleasant female, in no acute distress, nondiaphoretic, well-developed well-nourished. SKIN: The skin was without rashes, erythema, edema, or bruising. There is no tenting of the skin. Capillary reflex less than 2 seconds. HEAD: Normocephalic atraumatic. EARS: Right: External auditory canals clear, tympanic membranes pearly velazquez without erythema or effusion, left ear with ear canal slightly erythematous with tympanic membrane intact. Minimal left mastoid tenderness, no right mastoid tenderness. EYES: Pupils equal round and reactive to light and accommodation. Conjunctivae without injection, sclerae without icterus. Extraocular movements intact. NOSE: Patent, turbinates without inflammation or discharge. No sinus tenderness. MOUTH: Mucous membranes moist. Pharynx without erythema or exudate. Uvula midline. Airway patent. Tongue does not deviate. NECK: Supple without nuchal rigidity. No lymphadenopathy. No thyromegaly. Cervical spine is nontender. No JVD. HEART: Regular rate and rhythm without murmurs gallops or rubs. LUNGS: Clear to auscultation bilaterally without wheezes, rales or rhonchi. No retractions or accessory muscle use. ABDOMEN: Positive bowel sounds x 4. Normal tympanic percussion. Soft, nontender, without masses or organomegaly. Clay sign negative. No guarding or rebound tenderness. No CVA tenderness MUSCULOSKELETAL: No muscle atrophy, erythema, or edema noted. NEURO: Patient was alert and oriented to person place and time. Normal sensation to light and sharp touch. No focal neurological deficits. Medical Decision & Procedures Laboratory Results 10/25/17 00:14 Red Blood Count 4.15, Mean Corpuscular Volume 89.6, Mean Corpuscular Hemoglobin 29.9, Mean Corpuscular Hemoglobin Concent 33.3, Mean Platelet Volume 10.5, Neutrophils (%) (Auto) 51.1, Lymphocytes (%) (Auto) 37.7, Monocytes (%) (Auto) 7.6, Eosinophils (%) (Auto) 2.8, Basophils (%) (Auto) 0.4, Neutrophils # (Auto) 4.33, Lymphocytes # (Auto) 3.19, Monocytes # (Auto) 0.64, Eosinophils # (Auto) 0.24, Basophils # (Auto) 0.03 10/25/17 00:14 Test 10/25/17 00:14 White Blood Count 8.46 K/uL (4.8-10.8) Red Blood Count 4.15 M/uL (4.2-5.4) Hemoglobin 12.4 g/dL (12.0-16.0) Hematocrit 37.2 % (37-47) Mean Corpuscular Volume 89.6 fL (80-100) Mean Corpuscular Hemoglobin 29.9 pg (25-34) Mean Corpuscular Hemoglobin Concent 33.3 g/dl (32-36) Platelet Count 283 K/uL (130-400) Mean Platelet Volume 10.5 fL (7.4-10.4) Neutrophils (%) (Auto) 51.1 % Lymphocytes (%) (Auto) 37.7 % Monocytes (%) (Auto) 7.6 % Eosinophils (%) (Auto) 2.8 % Basophils (%) (Auto) 0.4 % Neutrophils # (Auto) 4.33 K/uL (1.4-6.5) Lymphocytes # (Auto) 3.19 K/uL (1.2-3.4) Monocytes # (Auto) 0.64 K/uL (0.11-0.59) Eosinophils # (Auto) 0.24 K/uL (0-0.5) Basophils # (Auto) 0.03 K/uL (0-0.2) RDW Standard Deviation 42.3 fL (36.4-46.3) RDW Coefficient of Variation 12.9 % (11.5-14.5) Immature Granulocyte % (Auto) 0.4 % Immature Granulocyte # (Auto) 0.03 K/uL (0.00-0.02) Anion Gap 4.0 mmol/L (3-11) Est Creatinine Clear Calc Drug Dose 91.4 ml/min Estimated GFR () 108.1 Estimated GFR (Non- 93.3 BUN/Creatinine Ratio 14.3 (10-20) Calcium Level 8.7 mg/dl (8.5-10.1) Human Chorionic Gonadotropin, Qual NEG (NEG) Medications Administered Medications (Trade) Dose Ordered Sig/Babar Route Start Time Stop Time Status Last Admin Dose Admin Ketorolac Tromethamine (Toradol Inj) 15 mg NOW STAT IV 10/24/17 22:48 10/24/17 22:51 DC 10/24/17 22:48 15 MG Diphenhydramine HCl (Benadryl Inj) 12.5 mg NOW STAT IV 10/25/17 01:26 10/25/17 01:27 DC 10/25/17 01:44 12.5 MG Metoclopramide HCl (Reglan Inj) 10 mg NOW STAT IV 10/25/17 01:26 10/25/17 01:27 DC 10/25/17 01:44 10 MG Oxycodone HCl (Roxicodone Immediate Rel 5MG Home Pack) 1 homepack UD ONCE PO 10/25/17 02:15 10/25/17 02:16 DC 10/25/17 02:16 1 HOMEPACK ED Course Prior records reviewed and summarized as above. Triage Nursing notes reviewed. The patient's history was concerning for severe ear pain Differential diagnosis: Etiologies such as otitis, mastoiditis, cellulitis, abscess, as well as others were entertained.. Physical examination: As above ER treatment provided: Toradol, Benadryl, Reglan On reassessment the patient felt better. Diagnostics interpreted by me: The labs revealed no worrisome leukocytosis. Negative ECG Imaging studies: CT negative for mastoiditis This appears to be isolated ear pain. Patient was advised to continue her antibiotics. She is given a referral to ENT and advised to call this point for follow-up for ongoing ear symptoms. She had no signs of mastoiditis. She had no signs of meningitis. She is neurovascularly and neurologically intact. She is well-appearing. She is advised to return to the ER immediately for headache , fevers, neck stiffness, worsening signs or symptoms or as needed. By the evaluation outlined above emergent etiologies such as abscess, mastoiditis as well as others were deemed relatively unlikely. The pt informed about the findings as listed above. All questions were answered and pleased with the treatment. Return instructions were outlined and the patient was discharged in stable condition. Referral: The patient was referred back to ENT and primary care physician for follow-up in 2 to 3 days for a recheck of the current condition. Case reviewed with my attending The chart was completed utilizing [employer] Speech voice recognition software. Grammatical errors, random word insertions, pronoun errors, and incomplete sentences are an occassional consequence of this system due to software limitations, ambient noise, and hardware issues. Any formal questions or concerns about the content, text, or information contained within the body of this dictation should be directly addressed to the physician food and beverage assistant manager for clarification. Medical Decision As above Medication Reconcilliation Current Medication List: was personally reviewed by me Blood Pressure Screening Patient's blood pressure: Normal blood pressure Impression Primary Impression: Left ear pain Departure Information Dispostion Home / Self-Care Condition GOOD Referrals Reji Sullivan M.D. Forms WORK / SCHOOL INSTRUCTIONS, HOME CARE DOCUMENTATION FORM, Days off school: 2 School Instructions, IMPORTANT VISIT INFORMATION Patient Instructions [facility] Additional Instructions DO NOT drive, drink alcohol, operate machinery, or perform dangerous activities today. You were given medications in the ER that can affect your ability to safely function or operate a vehicle. Oxycodone (OxyIR) 5mg: Take 1-2 pills every four hours for breakthrough pain. Avoid alcohol, operating machinery or dangerous equipment, working on ladders or roofs, DRIVING, or situations where being under the influence may be dangerous. It is recommended to use an [id number] stool softener such as Colace, 100mg twice daily while taking this medication to avoid constipation. Ibuprofen(Motrin, Advil) may be used for fever or pain. Use 600mg every six hours as needed. Take with food. Avoid using more than 2400mg in a 24 hour period. Do not use 2400mg per day for more than three consecutive days without physician direction. Prolonged inappropriate use can lead to stomach upset or ulcers. This medication can be taken if you need to drive, work, or perform activities which may be dangerous when taking narcotic pain medication. (AND/OR) Acetaminophen(Tylenol) may be used for fever or pain. Use 1000mg every six hours as needed. Avoid using more than 3000mg in a 24 hour period. This medication can be taken if you need to drive, work, or perform activities which may be dangerous when taking narcotic pain medication. Continue current medications. Return to the ER immediately for any fevers, neck stiffness, chest pain, worsening sinus symptoms or as needed. Call ENT tomorrow to arrange follow up for your ear problem.
--- NOTE | 2017-10-25 07:24 | DIAGNOSTIC IMAGING REPORT ---
MASTOIDS-ORB/SELLA/TEMP W/ CLINICAL HISTORY: 22 years-old Female presenting with severe left ear pain, ? mastoiditis. TECHNIQUE: Multidetector CT of the temporal bones was performed after the administration of intravenous contrast. IV contrast: 93 mL of Optiray 320. A dose lowering technique was used consistent with the principles of ALARA (as low as reasonably achievable). COMPARISON: None. CT DOSE (mGy.cm): The estimated cumulative dose is 89.13 mGy.cm. FINDINGS: Slab Installer topogram: Unremarkable. Vessels patent. Orbits normal. Superficial soft tissues within normal limits. Limited intracranial evaluation within normal limits. Paranasal sinuses and mastoid air cells clear. Middle ear cavities clear. Low density filling defect within the right external auditory canal, which may abut the tympanic membrane (series 3 image 82). The tympanic membranes are thin and imperceptible bilaterally, which is normal. The left external auditory canal is normal. IMPRESSION: 1. Low density foreign body in the right external auditory canal, which is indeterminant. Correlate with clinical exam. 2. No evidence of mastoiditis. No abnormality of the left ear. The report will be called/faxed according to standard departmental protocol. Electronically signed by: Howard Meraz M.D. 10/25/2017 7:23 AM Dictated Date/Time: 10/25/2017 6:48 AM
== END 2017-10-25 02:17 | disposition home or self-care (01) ==
LOC: C.EDB 22:28 → C.EDC 10-25 02:17
DX: H92.01 Otalgia, right ear (principal); Z79.82 Long term (current) use of aspirin